=== PATIENT | male | born 1950 | race Caucasian/White ===

== ENCOUNTER 2024-11-09 04:26 | Emergency (ER) | payer MEDICARE, SELFPAY ==
[2024-11-09 04:27] VITALS: BMI 25.1
[2024-11-09 04:38] VITALS: BP 168/92
[2024-11-09 05:54] VITALS: BP 136/94
[2024-11-09 06:00] VITALS: BP 136/86
--- NOTE | 2024-11-09 06:35 | ED.GENMED ---
History of Present Illness
General
Chief Complaint: Cold/Flu/URI Symptoms
Source: patient
Time Seen by Provider: 11/09/24 06:09
History of Present Illness
History of Present Illness:
74-year-old male with past medical history of hypertension and hyperlipidemia presenting to the emergency department for evaluation of 'chest congestion' for the last 5 days associated with a mild nonproductive cough and some mild fatigue. No known
sick contacts, recent travel, recent antibiotics. Patient denies any fevers, chills, rigors, otalgia, sore throat, current sinus congestion, abdominal pain, nausea, vomiting or any other concerns. Patient did take a combo COVID/flu test at home a
few days ago which was negative.
Past History
Past History
ED Past Medical History: HTN and Hypercholesterolemia
ED Past Surgical History: None
Social History
Tobacco: Non-smoker
Alcohol: None
Drug: None
Personal:
Living: with family
Employment: Employed
Review of Systems
Review of Systems
All Other Systems: ROS reviewed and negative except as documented in HPI and ROS
Phy Exam
Physical Exam
Physical Exam:
GENERAL: Alert , in no apparent distress
EYE: conjunctiva clear
NECK: Supple
ENT: o/p clr, mmm.
CARDIAC: Regular rate and rhythm
LUNGS: Clear breath sounds bilaterally, no acute respiratory distress, no wheezes/rales/rhonchi
NEUROLOGICAL: Alert and oriented
SKIN: Warm and dry, skin intact.
MUSCULOSKELETAL: well perfused.
PSYCH: Normal and appropriate interaction.
Scores
Heart Failure Risk
Heart Failure Risk Score: Not Applicable
Heart Score for Chest Pain Patients
STEMI patient?: Not applicable
Withdrawal Assessment of Alcohol
Withdrawal Assessment Completed?: Not applicable
Course
Orders/Labs/Results
Orders:
Orders
11/09/24 04:28
ECG [Electrocardiogram (*1)] Urgent
Reason for Study: Chest Pain
EKG- Treatment ONCE
11/09/24 06:25
CR Chest - 2 Views Urgent
Comment:
Reason For Exam: cough/chest congestion
Vital Signs
Initial and Last Documented VS:
Initial Vital Signs
Temp Pulse Resp BP Pulse Ox
97.8 F 78 22 168/92 98
11/09/24 04:38 11/09/24 04:38 11/09/24 04:38 11/09/24 04:38 11/09/24 04:38
Last Documented Vital Signs
Temp Pulse Resp BP Pulse Ox
97.8 F 68 12 136/86 98
11/09/24 04:38 11/09/24 06:30 11/09/24 06:30 11/09/24 06:00 11/09/24 04:38
MDM/Problems Addressed
Differential Diagnosis Includes:
Pneumonia, other viral etiology, less suspicion for COVID/flu given negative home test, patient without chest pain, hemoptysis, pleurisy or any other symptoms that would be suggestive of PE as well as has no risk factors for this, no current
symptoms to suggest valvular dysfunction/CHF
MDM/Problems Addressed:
74-year-old male presenting to the ER with 5 days of some chest congestion and a mild nonproductive cough. He is overall very well-appearing, afebrile, no tachycardia or tachypnea and satting between 98% and 100% on room air. Patient with clear
lungs on auscultation. EKG done in triage is normal sinus rhythm without any ectopy. Will obtain chest x-ray. Discussed with patient that I suspect his symptoms are most likely viral and that they will clear on his own. Consider antibiotic if
signs of pneumonia on chest x-ray. Will also consider steroid/inhaler for symptomatic relief. Anticipate discharge home.
*Radiology
Radiology exam reviewed: preliminary read by ED provider
*Pulse Oximetry
Patient hypoxic: no
*EKG
Heart Rate: 69
Rate: normal
Rhythm: sinus
Ischemia: no ischemia
*Critical Care Note
Total Time (30-74mins, 75-104mins- exclusive of procedures): Not Applicable
Patient Management
Escalation/DeEscalation of care consider admission/obs:
Normal chest x-ray. Patient remains hemodynamically stable, no acute respiratory distress. Stable for discharge home. Patient requesting he get a prescription for an antibiotic as he is going out of town for a few days with his . I did send
a prescription for Augmentin to pharmacy however I did encourage patient to not use this at this time given he is not showing signs of pneumonia on his chest x-ray but if he remains symptomatic still by Sunday that this would be okay to take.
Patient expressed understanding.
ED Attending Note
-
Portions of this chart may have been created with voice recognition software.� Occasional wrong word or��sound alike� substitutions may have occurred due to the inherent limitations of voice recognition software.
Discharge Plan
Departure
Patient Disposition: Home (Routine Discharge)
Date of Disposition: 11/09/24
Time of Disposition: 07:30
Patient with high blood pressure during this ER visit?: Yes
Discharge Problem:
URI (upper respiratory infection)
Instructions: Bronchitis in adults - ED discharge instructions
Prescriptions:
New
amoxicillin-pot clavulanate 875-125 mg tablet
1 tab PO BID 7 Days Qty: 14 0RF
methylprednisolone [Medrol (Michael)] 4 mg tablets,dose pack
4 mg PO DIRECTED Qty: 21 0RF
albuterol sulfate 90 mcg/actuation HFA aerosol inhaler
2 puff inhalation Q6H PRN (Reason: shortness of breath or wheezing) Qty: 6.7 0RF
No Action
hydrocodone-acetaminophen 5 MG/500 MG tablet
1 tab PO .Q4-6HPRN PRN (Reason: PAIN) Qty: 20 0RF
Referrals:
Robinson,Angela, [employer] [Family Provider] -
Interventions
Interventions:
*Risk Screen - Suicide Last Done: 11/09/24 04:38
*General Assessment Last Done: 11/09/24 07:47
*Neglect/Abuse Screening Last Done: 11/09/24 04:38
*ED- Fall Risk Assessment Last Done: 11/09/24 07:47
*ED COVID-19 Vaccine History Last Done: 11/09/24 07:47
*Nursing Disposition Last Done: 11/09/24 07:48
ED- Pulmonary Assessment Last Done: 11/09/24 06:00
Discharge Date and Time
Discharge Date/Time: 11/09/24 07:49
Print Language: SAMI
== END 2024-11-09 07:49 | disposition home or self-care (01) ==
LOC: EMR 04:26
PROVIDERS: EMERGENCY PHYSICIAN Emergency Medicine; FAMILY PHYSICIAN Registered Nurse
DX: J06.9 Acute upper respiratory infection, unspecified (principal); I10 Essential (primary) hypertension; E78.00 Pure hypercholesterolemia, unspecified
CPT/HCPCS: 99284; 71046; 93005